=== PATIENT | male | born 1965 | race Caucasian/White ===

== ENCOUNTER 2020-01-22 04:35 | Inpatient (IN) | payer MEDICARE, MEDICAID, OTHER ==
[2020-01-22 05:36] VITALS: BP 113/74
[2020-01-22] MEDS ORDERED: Magnesium Hydroxide (MOM) 30 mL UDC PO PRN (05:37)
[2020-01-22] MEDS ORDERED: Maalox 30 mL Cup PO PRN (05:37)
[2020-01-22] MEDS: Multivitamin Tab PO SCH (08:53)
--- NOTE | 2020-01-22 14:45 | History & Physical ---
ADMIT DATE: 01/22/2020 CHIEF COMPLAINT: Agitation, suicidal ideations. HISTORY OF PRESENT ILLNESS: We have a 54-year-old male with schizophrenia, diabetes, hypertension, who presents to the ER with suicidal ideations. The patient is homeless and does not have any HIV meds. PAST MEDICAL HISTORY: 1. Schizophrenia. 2. Human immunodeficiency virus. PAST SURGICAL HISTORY: None. MEDICATIONS: List reviewed. ALLERGIES: None. SOCIAL HISTORY: Tobacco, IV drugs, ETOH negative. PHYSICAL EXAMINATION: VITAL SIGNS: Temperature is 97.5, pulse 92, respirations 12, blood pressure 113/63, satting 92% on room air. HEENT: Normocephalic, atraumatic head exam. NECK: Supple. CARDIOVASCULAR: Regular rate and rhythm. LUNGS: Clear. ABDOMEN: Soft, nontender. EXTREMITIES: No edema, cyanosis or clubbing. ASSESSMENT AND PLAN: 1. Suicidal ideations. 2. Bipolar schizophrenic. 3. Human immunodeficiency virus. The patient will have routine labs done. We will go from there. The patient will continue with current management. [facility]# [id number]
--- NOTE | 2020-01-22 17:05 | Psychiatric Evaluation ---
DATE OF SERVICE: 01/22/2020 HISTORY OF PRESENT ILLNESS: A 54-year-old male, currently in the hospital with history of schizophrenia, depression, stating that 12/29/2019, his brother . His brother raised him. Brother who apparently in a car crash, could not go to the , very sad about this, upset, tearful on exam. Apparently, the family kicked him out at the age of 14 because "I was cornejo. This was in [place]." He notes that his family was very pious, "they thought homosexuals were possessed by the devil". The patient noting SI, HI, "stab myself and other people." very sad, upset, depressed, hopeless, and despairing. PAST PSYCHIATRIC HISTORY: Suicide attempts in the past, diagnosis of schizophrenia, depression, history of being on Zyprexa, Zoloft, trazodone, tells me his dosages. FAMILY HISTORY: Unclear. SOCIAL HISTORY: Born in [place], HIV positive for 33 years, low CD4 count, has not been on his antiretrovirals since December. No kids, homeless for some weeks. No drugs, alcohol or tobacco. Used to work as an [employer] in [place]. MENTAL STATUS EXAMINATION: Stated age, fair eye contact, disheveled, unkempt. Fair orientation. Mood bad. Affect is tearful. Thought processes were linear. Ongoing SI, HI, with intent and plan. The patient with command hallucinations to harm self. Fair insight, poor impulse control. DIAGNOSES: Schizophrenia; major depression, recurrent, unspecified. Under medical, please see full H and P. ESTIMATED LENGTH OF STAY: 10-15 days. ASSESSMENT: The patient requiring hospitalization, suicidal and homicidal, not safe for discharge. PLAN: We will restart medications Zoloft, Zyprexa, trazodone. TREATMENT PLAN: Includes group as well as milieu therapy. CONDITIONS FOR DISCHARGE: Improved mood, improved affect, better control of his SI and HI, psychosis. JOB# [id number]
[2020-01-23] MEDS: Multivitamin Tab PO SCH (08:17)
--- NOTE | 2020-01-23 13:20 | Internal Medicine Prog Note ---
Internal Medicine Subjective - Subjective Service Date: 01/23/20 Patient seen and examined:: without staff Patient is:: awake, interactive Per staff patient has:: no adverse event, no episodes of fall Internal Medicine Objective - Results Recent Labs: Laboratory Last Values POC Glucose 84 MG/DL (70 - 105) 01/22/20 05:47 - Physical Exam Vitals and I&O: Vital Signs Temp 98.2 F 01/23/20 06:51 Pulse 68 01/23/20 06:51 Resp 20 01/23/20 06:51 BP 114/73 01/23/20 06:51 Pulse Ox 98 01/23/20 06:51 Intake & Output 01/22/20 01/23/20 01/23/20 18:59 06:59 18:59 Intake Total 900 120 Balance 900 120 Intake: Oral 900 120 Other: # Voids 3 1 # Bowel Movements 1 0 Active Medications: Current Medications Acetaminophen (Tylenol) 650 mg PO Q4H PRN PRN Reason: Pain (Mild 1-3) Stop: 03/22/20 05:36 Last Admin: 01/22/20 13:52 Dose: 650 mg Al Hydrox/Mg Hydrox/Simethicone (Maalox) 30 ml PO Q4HR PRN PRN Reason: GI DISTRESS Stop: 03/22/20 05:36 Lorazepam (Ativan) 0.5 mg PO Q4HR PRN; Protocol PRN Reason: Anxiety Stop: 02/21/20 05:36 Magnesium Hydroxide (Milk Of Magnesia) 30 ml PO HS PRN PRN Reason: Constipation Multivitamins/Vitamin C (Theragran) 1 tab PO DAILY COLLINS Stop: 03/22/20 08:59 Last Admin: 01/23/20 08:17 Dose: 1 tab Olanzapine (Zyprexa) 15 mg PO HS COLLINS; Protocol Stop: 03/23/20 20:59 Sertraline HCl (Zoloft) 50 mg PO DAILY COLLINS; Protocol Stop: 03/23/20 08:59 Last Admin: 01/23/20 08:17 Dose: 50 mg Trazodone HCl (Desyrel) 50 mg PO HS COLLINS; Protocol Stop: 03/22/20 20:59 Last Admin: 01/23/20 01:49 Dose: Not Given General: weak HEENT: NC/AT Neck: Supple Lungs: CTAB Cardiovascular: RRR, Normal S1, Normal S2 Abdomen: soft, non-tender Extremities: clear Internal Medicine Assmt/Plan - Assessment Assessment: 1. Depression 2. HIV positive - Plan Plan: patient does not know his HIV meds. attempt to get the list of psych meds from family benjamin Vasquez
--- NOTE | 2020-01-23 16:57 | Progress Notes ---
DATE: 01/23/2020 SUBJECTIVE: This is a 54-year-old male, slept about 8 hours, mostly withdrawn, keeps to self. Still attesting to voices, perceptual disturbances, not kamla for safety, guarded, restless, withdrawn, depressed, ongoing SI, voices telling him to hurt self, stab self. The patient noting he does well with Zyprexa, Zoloft; currently on 10 mg of Zyprexa at nighttime. States he generally does well with nearly 20 mg, but has been off this dose for quite some time. Mostly withdrawn, keeps to self, ongoing symptoms, depressive symptoms, suicidal symptoms. He is not particularly agitated right now. Medications were reviewed. Labs were reviewed. Vitals were reviewed. Blood pressure 113/70, pulse 69. ASSESSMENT: A 54-year-old male, withdrawn, unkempt, very depressed, appearing suicidal. PLAN: We will increase dosing of Zyprexa given the extent and severity of his current suicidal state, psychotic state, he is not safe for a lower level of care. [facility]# [id number]
--- NOTE | 2020-01-24 00:14 | Progress Notes ---
DATE: 01/23/2020 SUBJECTIVE: A 54-year-old male, currently in the hospital. Fair orientation, calm, generally cooperative. No agitation, still depressed, withdrawn, slept about 6-1/2 hours, noting he slept "okay." He complains of the temperature in the room. No behaviors, wants to go back to previous facility. Currently pending COVID-19. They will not accept him without this. Periods of confusion, mumbling, seems internally preoccupied, concerns that he may not be able to care for himself outside of a structured environment, so we are trying really hard to confirm a safe disposition, pending COVID-19 testing. No symptoms at this time, but we need a negative test results before he leaves the hospital. Withdrawn, preoccupied with own thoughts. Medications were reviewed. Labs reviewed. Vitals were reviewed. Currently on dosing of Zyprexa. Blood pressure 121/77, pulse of 74. ASSESSMENT: This is a 54-year-old male, currently in the hospital, periods of confusion and disorientation, concerns for grave disability, pending COVID-19 testing. We will continue inpatient monitoring. Time spent with the patient, nursing staff, social sciences instructor. JOB# [id number]
[2020-01-24] MEDS: Multivitamin Tab PO SCH (08:32)
--- NOTE | 2020-01-25 00:59 | Progress Notes ---
DATE: 01/24/[address] Small. IDENTIFYING DATA: A 54-year-old male with history of schizophrenia, depression. His brother recently in late December. Today on [id number] evaluation, the patient reports he continues to find himself very depressed, hearing voices, grieving the loss of his brother with ongoing suicidal ideation. MENTAL STATUS EXAMINATION: Responding command-type auditory ____. ASSESSMENT AND PLAN: The patient is a 54-year-old male with a history of ____ ongoing psychotic symptoms. He reports he has been compliant with ____ continue increasing 15-20 mg. JOB# [id number]
[2020-01-25] MEDS: Multivitamin Tab PO SCH (08:45)
--- NOTE | 2020-01-25 16:31 | Progress Notes ---
DATE: SUBJECTIVE: The patient was seen and evaluated. The patient's chart was reviewed. The patient reports interrupted sleep. He did not take the trazodone. The patient stated that the Zyprexa was increased from 15 to 20 as he reports that the voices are still distressful but less with the recent increase. ASSESSMENT AND PLAN: Command type auditory hallucinations continue to impair the patient. We will continue with the recent increase of Zyprexa to 20 mg to target the patient's ongoing symptoms. JOB# [id number]
[2020-01-25] MEDS: OLANZapine 10 mg Oral Disintegrating Tab PO SCH (21:01)
[2020-01-26] MEDS: Multivitamin Tab PO SCH (08:19)
--- NOTE | 2020-01-26 09:22 | Progress Notes ---
DATE: 01/26/2020 [id number] evaluation, ____ does report the voices are less intense with the recent increase of Zyprexa. ASSESSMENT AND PLAN: Schizophrenia who continues to endorse auditory hallucinations, improvement is noted but despite the improvement continues to ____ distressed by the voices. Per returning physician, Zyprexa was increased to 20 mg without complications. JOB# [id number]
[2020-01-26] MEDS: OLANZapine 10 mg Oral Disintegrating Tab PO SCH (21:08)
[2020-01-27] MEDS: Multivitamin Tab PO SCH (09:01)
--- NOTE | 2020-01-27 14:32 | Progress Notes ---
DATE: SUBJECTIVE: The patient seen, chart reviewed, discussed with staff. The patient is currently in the hospital, noted to be with ongoing symptoms, still with command hallucinations not kamla for safety. Dr. Ga saw him over the weekend, noted he was very depressed, ongoing thoughts to harm self, mostly withdrawn, keeps to self, hallucinations, but these thoughts are dissipating and decreasing, stating he does better on higher dose of Zyprexa, is currently on Zyprexa 20 at night, is also requesting a daytime dose. Fair sleep and appetite. It is unclear where the patient resides. We will attempt to coordinate with social worker assistant to get more collateral, mostly withdrawn, keeps to self. Still preoccupied. Medications reviewed. Labs reviewed. Vitals were reviewed. No medication side effects. Blood pressure 116/75, pulse of 80. ASSESSMENT: A 54-year-old male with ongoing perceptual disturbances, SI, HI, voices. I will be increasing dosing of Zyprexa today. Ongoing symptoms, safety concerns. JOB# [id number]
[2020-01-27] MEDS: OLANZapine 10 mg Oral Disintegrating Tab PO SCH (20:09)
[2020-01-28] MEDS: Multivitamin Tab PO SCH (08:51)
[2020-01-28] MEDS: [UNRECOGNIZED DRUG - OTHER] PO SCH (13:00)
--- NOTE | 2020-01-28 15:40 | Progress Notes ---
DATE: 01/28/2020 SUBJECTIVE: A 54-year-old male, currently slept comfortably for about 6 hours, doing better. Mood "better." Voices dissipating, decreasing. The patient noting that he feels medications are helping, happy with current dosing of Zyprexa. Ongoing symptoms, still mumbling to self, responding to internal stimuli. Fair sleep and appetite, still with hallucinations, but less. Medications were reviewed. Labs reviewed. Vitals were reviewed. ASSESSMENT: A 54-year-old male with ongoing symptoms, psychotic symptoms. Some improvement noted, seems to be in better spirits. States that he can go live in a hotel if necessary. PLAN: We will continue inpatient monitoring. Extensive time was spent with the patient evaluating his thought content speaking to him also about future plans, also evaluated for any medication side effects, none noted. JOB# [id number]
[2020-01-28] MEDS: OLANZapine 10 mg Oral Disintegrating Tab PO SCH (20:44)
[2020-01-29] MEDS: Multivitamin Tab PO SCH (08:29)
[2020-01-29] MEDS: [UNRECOGNIZED DRUG - OTHER] PO SCH (10:55)
--- NOTE | 2020-01-29 18:01 | Progress Notes ---
DATE: 01/29/2020 SUBJECTIVE: A 54-year-old male, currently in the hospital. Mood "okay." Ongoing voices, perceptual disturbances, still appearing down, depressed, ongoing melancholy, walking around the unit. Mood "okay" better, happy to be on Zyprexa, happy with Zyprexa. Fair sleep and appetite. Staff noting he has been somewhat more engaged. The patient with AIDS. Noted to be homeless, has nowhere to go. Eating fairly well, redirectable, depressed on exam. Medications reviewed. Labs reviewed. Vitals were reviewed. ASSESSMENT: A 54-year-old male, currently on dosing of Zyprexa, tolerating well, seems to be improving, also on Zoloft, ongoing voices, mumbling to self. PLAN: We will continue inpatient monitoring. JOB# [id number]
[2020-01-29] MEDS: OLANZapine 10 mg Oral Disintegrating Tab PO SCH (20:48)
[2020-01-30] MEDS: Multivitamin Tab PO SCH (08:47)
[2020-01-30] MEDS: [UNRECOGNIZED DRUG - OTHER] PO SCH (10:37)
--- NOTE | 2020-01-30 12:05 | Discharge Summary ---
DATE OF DISCHARGE: 01/30/2020 HISTORY OF PRESENT ILLNESS: A 54-year-old male with history of mental illness, currently in the hospital, voices command voices telling him to hurt himself. Not kamla for safety, feeling very depressed, despairing, noting a lot of trauma in the past, wanting to hurt others and self. PAST PSYCHIATRIC HISTORY: Schizophrenia, suicide attempts in the past. SOCIAL HISTORY: Noted. Had been homeless. DIAGNOSES: Schizophrenia, major depression, recurrent, unspecified. MEDICAL HISTORY: AIDS. HOSPITAL COURSE: After initial assessment, the patient was started back on medications Zoloft, Zyprexa. Zyprexa was titrated. Over the course of treatment, mood improved, affect improved. Cessation of any SI, cessation of any perceptual disturbances. No voices. No command voices. Better sleep and appetite, more sociable and engaged. Placement confirmed on 01/30/2020. CONDITION UPON DISCHARGE: Improved, linear, engaged, no SI, no HI, no intent, no plan or overt psychotic symptoms, better insight. Accepting of treatment and wants things to improve, optimistic. The patient going to a program where they found him in a hotel in [place], the patient accepting of this. DIAGNOSES: Schizophrenia, major depression, recurrent, severe. MEDICAL: Please see full H and P. PROGNOSIS: The patient follows up with outpatient mental health services and remains compliant with treatment. Prognosis will improve, otherwise guarded. [facility]# [id number]
== END 2020-01-30 11:35 | disposition short-term general hospital (02) | DRG 885 ==
LOC: GERO 04:35
PROVIDERS: ADMIT Psychiatry & Neurology Psychiatry; ATTEND Psychiatry & Neurology Psychiatry
DX: F20.9 Schizophrenia, unspecified (principal); B20 Human immunodeficiency virus [HIV] disease; F33.9 Major depressive disorder, recurrent, unspecified; R45.851 Suicidal ideations; E11.9 Type 2 diabetes mellitus without complications; I10 Essential (primary) hypertension; Z59.0 Homelessness; Z88.0 Allergy status to penicillin; Z88.2 Allergy status to sulfonamides; Z79.899 Other long term (current) drug therapy
CPT/HCPCS: 82948-90; 83036-90; G0410; J7051; Z7610